=== PATIENT | male | born 1960 | race Caucasian/White ===

== ENCOUNTER 2020-10-13 02:32 | Outpatient (CLI) | payer MEDICAID, SELFPAY ==
--- NOTE | 2020-10-13 | DI.US_ITS ---
EXAM: US RENAL CLINICAL HISTORY: RENAL CYSTIC DISEASE,Q61.9. TECHNIQUE: Duran scale, color and spectral Doppler were used. COMPARISON: No exams were available for comparison FINDINGS: Renal size in cm: Right: . Left: . Echogenicity: Normal. Hydronephrosis: No. Cyst or mass: Multiple bilateral renal cysts. The largest on the right measures 4.3 x 3.4 x 4.3 cm. The largest on the left measures 3.8 x 3.8 x 4.2 cm and contains a 3.1 cm solid component. Nephrolithiasis: Do appear to be a few echogenic foci within the kidneys which may represent nonobstr ucting stones. Renal colic CT may be obtained for further evaluation. Other findings: There is a 1.5 x 1.3 x 1.7 cm echogenic hepatic lesion, sonographically suspicious fo r a hepatic hemangioma. There is a 5.7 x 4.6 x 5.3 cm isoechoic mass in the liver which show some pe ripheral vascularity. Bladder:Normal. Ureteral jets: Right: Visualized and unremarkable. Left: Visualized and unremarkable. Prevoid vol:297 cc Postvoid vol:64 cc Prostate: 36 cc Renal color flow: Symmetric and within normal limits. IMPRESSION: 1. Polycystic kidneys. 2. 4.2 cm complex cystic and solid left renal lesion. Comparison should be made with prior examinati ons if available. Neoplastic process cannot be excluded. MRI of the kidneys should be considered fo r further evaluation. 3. 5.7 cm isoechoic vascular hepatic lesion. Further evaluation with an MRI of the liver is recommen ded. 4. 1.7 cm echogenic hepatic lesion which may represent hepatic hemangioma. Follow-up is recommended with MRI of the liver. 5. Enlarged prostate gland. 6. Large postvoid urinary bladder volume. DATA REPOSITORY:
== END 2020-10-13 02:52 ==
PROVIDERS: PCP Physician Assistant; Visit Provider Physician Assistant
DX: N28.1 Cyst of kidney, acquired (principal); N20.0 Calculus of kidney; K76.89 Other specified diseases of liver; Q61.3 Polycystic kidney, unspecified; N40.0 Benign prostatic hyperplasia without lower urinary tract symptoms; R33.9 Retention of urine, unspecified
CPT/HCPCS: 76770

== ENCOUNTER 2020-11-11 01:29 | Outpatient (CLI) | payer MEDICAID, SELFPAY ==
[2020-11-11 10:31] LABS: CREATININE 1.2 mg/dL (0.70-1.30)
[2020-11-11] MEDS: Gadoterate meglumine 20 ML VIAL 12 ML IVP (10:56)
--- NOTE | 2020-11-11 11:05 | DI.MRI_ITS ---
Exam(s) MR ABDOMEN WO/W EXAM: MR ABDOMEN WO/W CLINICAL HISTORY: RENAL CYSTIC DISEASE,Q61.9,POLYCYSTIC KIDNEYS,HEPATIC CYST,F/U 09/2020 US. TECHNIQUE: Multiplanar multisequence MRI was performed. COMPARISON: MR MRI ABDOMEN WITH + WITHOUT CONTRAST from 01/03/2020 US US RENAL from 10/13/2020 FINDINGS: MR examination of the abdomen was performed according to the usual protocol including multi phasic po st contrast T1 weighted imaging. Examination is compared with recent ultrasound of October 13 and prior MR of the abdomen of January 02 020 from an outside institution. There are innumerable hepatic and renal cysts noted consistent with polycystic kidney disease. These appear to have been present on prior examinations. The liver also contains an approximately 6 cm in diameter solid mass in the right hepatic lobe anterior to the upper pole of the right kidney, this s hows increased signal on T2 weighted images and low to intermediate signal on T1 weighted images. Fo llowing contrast administration, this mass enhances in a centripetal fashion consistent with hepatic hemangioma, entirely filling on the 15 minutes delayed image. An additional small hemangiomas also s een in the right hepatic lobe with typical flow characteristics. No additional solid suspicious hepa tic lesion identified. There is a laterally located complex mass of the lateral aspect of the left kidney, this appears to h ave been present on the prior examination. This shows high signal on T1 weighted imaging suspicious for hemorrhage. Contrast enhanced examination shows no evidence of contrast enhancement in this lesi on. As noted on ultrasound examination, this measures about 4 cm in greatest diameter. No additional suspicious renal lesion identified. No hydronephrosis. No gross adenopathy in the ret roperitoneum. Pancreas appears unremarkable. Spleen appears normal. IMPRESSION: Findings consistent with polycystic kidney disease with innumerable hepatic and bilateral renal cysts . 6 cm right hepatic lobe lesion and 2 cm right hepatic lobe lesion have pattern of enhancement on mult iphasic imaging consistent with hepatic hemangiomas. Left lateral cortical renal mass has appearance consistent with a hemorrhagic renal cyst with no evid ence of an enhancing lesion. Small solid component not excluded. Follow-up ultrasound is recommende d in 12 months to assess the stability of this lesion. DATA REPOSITORY:
== END 2020-11-11 01:49 ==
PROVIDERS: PCP Physician Assistant; Visit Provider Physician Assistant
DX: Q61.2 Polycystic kidney, adult type (principal); N28.1 Cyst of kidney, acquired; K76.89 Other specified diseases of liver; D18.03 Hemangioma of intra-abdominal structures; Z01.812 Encounter for preprocedural laboratory examination
CPT/HCPCS: 74183; 82565

== ENCOUNTER 2021-01-08 20:32 | Outpatient (REF) | payer MEDICAID, SELFPAY ==
[2021-01-08 19:32] LABS: HGB 13.6 g/dL (13.5-17.5); MCH 30.4 pg (27.0-33.0); MCHC 32.4 % (32.0-36.0); MCV 93.8 fL (80-95); MPV 10.7 fL (8.0-11.0); Platelet Count 190 10^3/uL (130-400); RBC 4.48 10^6/uL (4.36-5.78); RDW 12.3 % (11.8-14.1); RDW-SD 42.5 fL; WBC 5.75 10^3/uL (4.4-10.8)
[2021-01-08 19:44] LABS: ALT 24 U/L (16-63); AST 27 U/L (15-37); Albumin 3.8 g/dL (3.4-5.0); Alkaline Phosphatase 49 U/L (46-116); Anion Gap 10.2 mmol/L (3-11); BUN 20 mg/dL (7-18); Bilirubin, Total 0.5 mg/dL (0.2-1.0); CO2 25.8 mmol/L (21.0-32.0); CREATININE 1.4 mg/dL (0.70-1.30); Calculated LDL 133 mg/dL (<100); Chloride 105 mmol/L (98-107); Cholesterol 213 mg/dL (<200); Estimated GFR 51.87 (mL/min/1.73m2); Glucose 91 mg/dL (74-106); HDL Cholesterol 70 mg/dL (40-60); Potassium 4.6 mmol/L (3.5-5.1); Sodium 141 mmol/L (136-145); Triglyceride 50 mg/dL (<150)
[2021-01-09 17:20] LABS: PSA, Screening 0.9 ng/mL (0.0-3.5)
== END 2021-01-08 20:33 | disposition home or self-care (01) ==
LOC: NCHCN 20:32
PROVIDERS: PCP Physician Assistant; Visit Provider Physician Assistant
DX: Z00.00 Encounter for general adult medical examination without abnormal findings (principal); Q61.9 Cystic kidney disease, unspecified
CPT/HCPCS: 80053; 80061; 84153; 85027

== ENCOUNTER 2021-08-06 15:03 | Outpatient (REF) | payer MEDICAID, SELFPAY ==
[2021-08-06 16:37] LABS: BUN 23 mg/dL (7-18); CREATININE 1.3 mg/dL (0.70-1.30); Calcium 9.2 mg/dL (8.5-10.1); Chloride 104 mmol/L (98-107); Estimated GFR 56.31 (mL/min/1.73m2); Glucose 89 mg/dL (74-106); Sodium 139 mmol/L (136-145)
== END 2021-08-06 15:04 | disposition home or self-care (01) ==
LOC: NCHCN 15:03
PROVIDERS: PCP Physician Assistant; Visit Provider Physician Assistant
DX: Q61.2 Polycystic kidney, adult type (principal)
CPT/HCPCS: 80048

== ENCOUNTER → 2021-11-18 00:34 | Outpatient (CLI) | payer MEDICAID, SELFPAY ==
--- NOTE | 2021-11-18 | DI.US_ITS ---
Exam(s) US RENAL EXAM: US RENAL CLINICAL HISTORY: RENAL CYSTIC DISEASE, Q61.9, SURVEILLANCE. TECHNIQUE: Duran scale, color and spectral Doppler were used. COMPARISON: MR MRI ABDOMEN WITH + WITHOUT CONTRAST from 01/03/2020 US US RENAL from 10/13/2020 MR MR ABDOMEN WO/W from 11/11/2020 FINDINGS: Renal size in cm: Right: 12.7 left: Echogenicity: Increased echogenicity of renal parenchyma could indicate medical renal disease. Hydronephrosis: No Cyst or mass: Innumerable bilateral cysts, the largest at the right lower pole measuring 4.4 cm. The largest cyst on the left measures 2.5 cm. The previously noted complex lesion of the left kidney i s not seen on today's exam. Nephrolithiasis: Bilateral shadowing foci, stones versus artifact. No hydronephrosis. Bladder:Normal Prevoid vol:25 Postvoid vol:Not performed IMPRESSION: Innumerable bilateral renal cysts consistent with polycystic kidney disease. No solid masses. Bilat eral stones versus artifacts DATA REPOSITORY:
== END ==
PROVIDERS: PCP Physician Assistant; Visit Provider Physician Assistant
DX: Q61.2 Polycystic kidney, adult type (principal); N28.89 Other specified disorders of kidney and ureter
CPT/HCPCS: 76770

== ENCOUNTER 2022-08-04 17:39 | Outpatient (REF) | payer MEDICAID, SELFPAY ==
[2022-08-04 15:54] LABS: Anion Gap 5.3 mmol/L (3-11); BUN 25 mg/dL (7-18); CO2 28.7 mmol/L (21.0-32.0); CREATININE 1.3 mg/dL (0.70-1.30); Calcium 9.2 mg/dL (8.5-10.1); Chloride 106 mmol/L (98-107); Glucose 83 mg/dL (74-106); Potassium 4.7 mmol/L (3.5-5.1); Sodium 140 mmol/L (136-145)
== END 2022-08-04 17:40 | disposition home or self-care (01) ==
LOC: NCHCN 17:39
PROVIDERS: PCP Physician Assistant; Visit Provider Physician Assistant
DX: Q61.8 Other cystic kidney diseases (principal)
CPT/HCPCS: 80048

== ENCOUNTER 2023-08-26 08:35 | Outpatient (REF) | payer MEDICAID, SELFPAY ==
[2023-08-26 17:23] LABS: Anion Gap 8.7 mmol/L (3-11); BUN 22 mg/dL (7-18); CO2 27.3 mmol/L (21.0-32.0); CREATININE 1.2 mg/dL (0.70-1.30); Calcium 9.3 mg/dL (8.5-10.1); Calculated LDL 145 mg/dL (<100); Chloride 107 mmol/L (98-107); Cholesterol 235 mg/dL (<200); Estimated GFR 68.38 (mL/min/1.73m2); Glucose 82 mg/dL (74-106); HDL Cholesterol 81 mg/dL (40-60); Potassium 4.3 mmol/L (3.5-5.1); Sodium 143 mmol/L (136-145); Triglyceride 47 mg/dL (<150)
== END 2023-08-26 08:36 | disposition home or self-care (01) ==
LOC: NCHCN 08:35
PROVIDERS: PCP Physician Assistant; Visit Provider Physician Assistant
DX: Q61.02 Congenital multiple renal cysts (principal); R79.89 Other specified abnormal findings of blood chemistry; Z13.220 Encounter for screening for lipoid disorders; Z12.5 Encounter for screening for malignant neoplasm of prostate
CPT/HCPCS: 80048; 80061; 84153

== ENCOUNTER 2024-12-05 09:15 | Outpatient (REF) | payer MEDICAID, SELFPAY ==
[2024-12-05 15:41] LABS: Anion Gap 6.4 mmol/L (3-11); BUN 24 mg/dL (7-18); CO2 27.6 mmol/L (21.0-32.0); CREATININE 1.1 mg/dL (0.70-1.30); Calculated LDL 162 mg/dL (<100); Chloride 105 mmol/L (98-107); Cholesterol 236 mg/dL (<200); Estimated GFR 75.43 (mL/min/1.73m2); Glucose 86 mg/dL (74-106); HDL Cholesterol 59 mg/dL (>or=40); Potassium 4.3 mmol/L (3.5-5.1); Sodium 139 mmol/L (136-145); Triglyceride 78 mg/dL (<150)
[2024-12-05 22:56] LABS: PSA, Screening 1.1 ng/mL (<=4.5)
== END 2024-12-05 09:16 | disposition home or self-care (01) ==
LOC: NCHCN 09:15
PROVIDERS: PCP Physician Assistant; Visit Provider Physician Assistant
DX: E78.5 Hyperlipidemia, unspecified (principal); Q61.00 Congenital renal cyst, unspecified
CPT/HCPCS: 80048; 80061; 84153

== ENCOUNTER 2025-04-12 06:08 | Day surgery (SDC) | payer MEDICAID, SELFPAY ==
[2025-04-12 06:15] VITALS: BP 132/86; PULSE 52; RESP 16; TEMP 36; O2SAT 100
[2025-04-12] MEDS: Lactated Ringers 1,000 ML 80 ML IV (06:41)
--- NOTE | 2025-04-12 07:13 | W.ANESPRE ---
General Info Date of Service Date Performed: 04/12/25 Height: 5 ft 10 in Weight: 57.2 kg Body Mass Index (BMI): 18.1 Surgical Procedure: Operation Date: 04/12/25 07:35 Proposed Procedure Side Surgeon p Colonoscopy Vanessa Dinh MD Actual Procedure Side Surgeon p Colonoscopy Not Applicable Vanessa Dinh MD Pre-Op Diagnosis Post-Op Diagnosis Screening colonoscopy Meds Allergies and Home Medications Allergies Allergy/AdvReac Type Severity Reaction Status Date / Time No Known Allergies Allergy Verified 04/12/25 06:26 Home Medication ?Medication ?Instructions ?Recorded amlodipine 5 mg tablet 5 mg PO DAILY 03/26/25 lisinopril 5 mg tablet 5 mg PO DAILY 03/26/25 bisacodyl 5 mg tablet,delayed 5 mg PO ONCE #4 tabs 03/29/25 release (Dulcolax (bisacodyl)) polyethylene glycol 3350 17 17 g PO ONCE #238 grams 03/29/25 gram/dose oral powder Current Visit Medications: Current Medications Generic Name Dose Route Start Last Admin Trade Name Fabby PRN Reason Stop Dose Admin Ringer's Solution 1,000 mls @ 80 mls/hr 04/12/25 06:00 04/12/25 06:41 IV 04/12/25 23:59 80 mls/hr INFUSION ELIZA Administration IV Miscellaneous Supplies 1 each 04/12/25 06:00 Iv Access IV 04/12/25 23:59 DIRECTED ELIZA Sodium Biphosphate/Sodium Phosphate 133 ml 04/12/25 06:00 Na Phosphate Enema-Adult 133 Ml Btl LA 04/12/25 23:59 DIRECTED PRN Sodium Chloride 0 ml 04/12/25 06:00 Normal Saline Flush 10 Ml Syr IV 04/12/25 23:59 PRN PRN Sodium Chloride 0 ml 04/12/25 06:00 Normal Saline 10 Ml Vial IJ 04/12/25 23:59 DIRECTED PRN Sterile Water 0 ml 04/12/25 06:00 Water,Injection,Sterile 10 Ml Vial IJ 04/12/25 23:59 DIRECTED PRN PFSH Active Problems Active Problems: Problem Status Onset Code Encounter for colonoscopy due to history of colonic polyp Acute Z12.11, Z86.0100 Essential hypertension Acute I10 Anxiety disorder Acute F41.9 Hyperlipidemia Acute E78.5 Medical History Medical History Multiple congenital cysts of kidney Raynauds disease Surgical History Surgical History History of colonoscopy with polypectomy (~2019) Tobacco Smoking/Tobacco Use Status: Never Passive smoking exposure: Yes Alcohol Alcohol Intake: current Alcohol intake frequency: a few times a week Substance Use Substance use: Never Substance use type: does not use Vital Signs and Lab Results Vital Signs Most Recent Vital Signs in EMR: Most Recent Vital Signs Temp Pulse Resp BP Pulse Ox 36 C L 52 L 16 132/86 100 04/12/25 06:15 04/12/25 06:15 04/12/25 06:15 04/12/25 06:15 04/12/25 06:15 Anesthesia Assessment and Plan Anesthesia History Personal History: No History of Anesthesia Complications Family History: No Family History of Anesthesia Complications Exercise Tolerance Exercise Tolerance: Metabolic Equivalents>4 Pertinent Negatives Pertinent Negatives: No Symptoms of GERD Cardiac & Pulmonary Exam Cardiac Exam: Normal S1/S2 Heart Sounds Pulmonary Exam: Clear Bilateral Breath Sounds Implantable Cardiac Device Does patient have a Pacemaker or an ICD?: No Airway Exam Known Difficult Airway: No Mallampati Class: 2 Mouth Opening: Normal (> 3cm) Thyromental Distance: Greater than 3 cm Neck Range of Motion: Full ROM Neck Circumference: Normal Teeth Condition: Normal Dentition ASA Classification ASA Score: ASA 2 Emergency Case?: No NPO Status NPO Status: NPO Clears >2 hours, Solids >8 hours Anesthesia Plan Resuscitation Status: Full Code Anesthesia Technique: General Anesthesia Airway Planned: Natural Airway Monitors Used: Standard Monitors
[2025-04-12 07:17] VITALS: BMI 18.1
[2025-04-12 07:59] VITALS: BP 85/53; PULSE 74; RESP 16; TEMP 36.3; O2SAT 98
--- NOTE | 2025-04-12 08:00 | W.COLOREPORT ---
Date of service: 04/12/25 Time of Service: 08:01 Colonoscopy Report Date of procedure: 04/12/25 Pre-op diagnosis general: History of colon polyps Post-op diagnosis procedure note: same Procedure: Screening colonoscopy Surgeon: Vanessa Dinh Anesthesia Type: General:No Airway Estimated blood loss (mL): 1 Pathology: none sent Complications: None Disposition: PACU Indications: Patient is a 65 yo male who presents for a screening colonoscopy. He had a previous colonoscopy in 2019 with evidence of polyps and presents for a repeat colonoscopy. Prep: Miralax/Dulcolax Procedure Start Time: 07:36 Procedure End Time: 07:54 Retraction Time: 9 Findings: Normal screening colonoscopy. Evidence of internal hemorrhoids. Procedure Description: Informed consent was obtained. The patient was taken to the endoscopy suite and placed in the left lateral decubitus position. After adequate intravenous sedation, digital rectal exam was performed, which was normal. A colonoscope was inserted into the rectum and negotiated to the cecum. The ileocecal valve and appendiceal orifice were identified. The entire colonic mucosa was then carefully circumferentially inspected upon slow withdrawal of the scope. The cecum, ascending, transverse, and descending colon were all normal. Retroflexion in the rectum was unremarkable except for evidence of internal hemorrhoids. The patient tolerated the procedure well with no complications. Postoperatively, the patient was transferred to the recovery room in stable condition. [place] Bowel Prep [place] Bowel Prep Right Colon: 3 Left Colon: 3 Transverse Colon: 3 Total Score: 9
[2025-04-12 08:30] VITALS: BP 134/57; PULSE 51; RESP 16; TEMP 36.5; O2SAT 97
--- NOTE | 2025-04-12 08:40 | W.ANESPOSTOP ---
Postoperative Evaluation Date, Time and Location Date Performed: 04/12/25 Time Performed: 08:40 Patient Location: Day Surgery Unit Vital Signs Most Recent Imported Vital Signs: Most Recent Vital Signs Temp Pulse Resp BP Pulse Ox 36.3 C L 74 16 85/53 L 98 04/12/25 07:59 04/12/25 07:59 04/12/25 07:59 04/12/25 07:59 04/12/25 07:59 Pain Score Most Recent Pain Score: Most Recent Pain Score Pain Level 0 04/12/25 07:59 Assessment Mental Status: Awake (Alert & Oriented to Patient Baseline) Airway and Respiratory Function: Patent airway with normal (patient baseline) respiratory exam Cardiovascular Function: Hemodynamically Stable Hydration Status: Adequately Hydrated Nausea & Vomiting: No Nausea or Vomiting Pain: Pt. Denies Any Pain Peripheral Nerve Block: Patient did not receive a nerve block
== END 2025-04-12 08:50 | disposition home or self-care (01) ==
PROVIDERS: PCP Physician Assistant; Visit Provider Student in an Organized Health Care Education/Training Program
PROC: 0DJD8ZZ Inspection of Lower Intestinal Tract, Via Natural or Artificial Opening Endoscopic (ICD-10-PCS; CPT 45378; principal; 2025-04-12 07:30)
DX: Z12.11 Encounter for screening for malignant neoplasm of colon (principal); Z86.0100 Personal history of colon polyps, unspecified; K64.8 Other hemorrhoids
CPT/HCPCS: 45378; J2704